=== PATIENT | female | born 1955 | race African-American/Black ===

== ENCOUNTER → 2017-03-03 | Outpatient (CLI) | payer OTHER | LOC: CAT 09:36 | DX: J98.11 Atelectasis (principal); J35.8 Other chronic diseases of tonsils and adenoids; R10.9 Unspecified abdominal pain ==

== ENCOUNTER → 2017-03-06 | Outpatient (CLI) | payer OTHER | LOC: ULTRA 04:36 | DX: N83.9 Noninflammatory disorder of ovary, fallopian tube and broad ligament, unspecified (principal) ==

== ENCOUNTER → 2019-04-01 | Outpatient (CLI) | payer OTHER ==
[~2019-04-01] MED LIST: CAFERGOT TABLE1 EACH PO; DIHYDROERGOTAMIN1 ML NASAL; FLECTOR PATCH1 EA TOP; FLEXERIL PO; GABA TOP; IBUPROFEN 800800 M1 PO; LIDO TOP; LIDOCAINE1 EACH TOP; LIPITOR10 MG PO; NABUMETONE 500500 M1 PO; PENTOX TOP; TRAZODONE HCL100 MG PO; TRIAMTERENE-HC1 EAC3 PO; VERAPAMIL E.R240 M1 PO; [UNRECOGNIZED DRUG - OTHER] TOP
== END ==
LOC: RAD 13:48
DX: Z12.31 Encounter for screening mammogram for malignant neoplasm of breast (principal)

== ENCOUNTER → 2019-04-01 | Outpatient (CLI) | payer OTHER | LOC: CAT 12:24 | DX: Z13.6 Encounter for screening for cardiovascular disorders (principal); E78.00 Pure hypercholesterolemia, unspecified; I25.10 Atherosclerotic heart disease of native coronary artery without angina pectoris ==

== ENCOUNTER 2019-04-06 12:25 | Outpatient (CLI) | payer OTHER ==
[2019-04-06] VITALS (7 sets, daily range): BP systolic 131–168; BP diastolic 63–84
[~2019-04-06] VITALS: Ht 167.6 cm; Wt 70.3 kg
[2019-04-06] MEDS ORDERED: FLEXERIL PO (13:38)
[2019-04-06] MEDS ORDERED: NABUMETONE 500500 M1 PO (13:39)
[2019-04-06] MEDS ORDERED: LIPITOR10 MG PO (13:40)
[2019-04-06] MEDS ORDERED: DIHYDROERGOTAMIN1 ML NASAL (13:40)
[2019-04-06] MEDS ORDERED: VERAPAMIL E.R240 M1 PO (13:42)
[2019-04-06] MEDS ORDERED: PENTOX TOP (13:42)
[2019-04-06] MEDS ORDERED: LIDO TOP (13:42)
[2019-04-06] MEDS ORDERED: GABA TOP (13:42)
[2019-04-06] MEDS ORDERED: [UNRECOGNIZED DRUG - OTHER] TOP (13:42)
[2019-04-06] MEDS ORDERED: TRIAMTERENE-HC1 EAC3 PO (13:43)
[2019-04-06] MEDS ORDERED: IBUPROFEN 800800 M1 PO (13:44)
[2019-04-06] MEDS ORDERED: FLECTOR PATCH1 EA TOP (13:46)
[2019-04-06] MEDS ORDERED: TRAZODONE HCL100 MG PO (13:48)
[2019-04-06] MEDS ORDERED: CAFERGOT TABLE1 EACH PO (13:50)
[2019-04-06] MEDS ORDERED: LIDOCAINE1 EACH TOP (13:50)
== END 2019-04-06 19:22 | disposition home or self-care (01) ==
LOC: CATH 12:25 → 2N 16:50 → ENTRNSPT 18:40 → CATH 19:22
DX: I70.212 Atherosclerosis of native arteries of extremities with intermittent claudication, left leg (principal); I70.1 Atherosclerosis of renal artery; I10 Essential (primary) hypertension; I25.10 Atherosclerotic heart disease of native coronary artery without angina pectoris; G43.909 Migraine, unspecified, not intractable, without status migrainosus; E78.5 Hyperlipidemia, unspecified; M19.90 Unspecified osteoarthritis, unspecified site; F17.210 Nicotine dependence, cigarettes, uncomplicated; Z98.890 Other specified postprocedural states; Z82.49 Family history of ischemic heart disease and other diseases of the circulatory system; Z79.899 Other long term (current) drug therapy
CPT/HCPCS: 10081

== ENCOUNTER → 2019-12-10 | Outpatient (CLI) | payer OTHER | LOC: SJCVC 13:11 | DX: R94.31 Abnormal electrocardiogram [ECG] [EKG] (principal); I73.9 Peripheral vascular disease, unspecified; I10 Essential (primary) hypertension; E78.5 Hyperlipidemia, unspecified; M19.90 Unspecified osteoarthritis, unspecified site; G43.909 Migraine, unspecified, not intractable, without status migrainosus; F17.200 Nicotine dependence, unspecified, uncomplicated; Z79.84 Long term (current) use of oral hypoglycemic drugs; Z79.899 Other long term (current) drug therapy ==

== ENCOUNTER → 2019-12-15 | Outpatient (CLI) | payer OTHER | LOC: SJCVCIMAG 07:23 | DX: I11.9 Hypertensive heart disease without heart failure (principal); I35.8 Other nonrheumatic aortic valve disorders; I25.10 Atherosclerotic heart disease of native coronary artery without angina pectoris ==

== ENCOUNTER → 2019-12-17 | Outpatient (CLI) | payer OTHER | LOC: CV 07:07 → NUC 07:08 → EDSTATUS 07:21 → CV 15:50 | DX: R94.31 Abnormal electrocardiogram [ECG] [EKG] (principal); R07.9 Chest pain, unspecified; R63.1 Polydipsia; I10 Essential (primary) hypertension; F17.200 Nicotine dependence, unspecified, uncomplicated; Z79.84 Long term (current) use of oral hypoglycemic drugs ==